=== PATIENT | female | born 1990 | race Caucasian/White ===

== ENCOUNTER 2016-11-04 19:37 | Emergency (ER) | payer OTHER ==
[~2016-11-04] VITALS: Ht 162.6 cm; Wt 81.0 kg
[~2016-11-04 19:37] MED LIST: PHEN30CA2 PO; VIT D3
[2016-11-04 19:51] VITALS: Ht 162.6 cm; Wt 81.0 kg
[2016-11-04] MEDS ORDERED: IBUPROFEN 200 MG TAB PO ONE (20:30)
--- NOTE | 2016-11-04 20:42 | ERD ---
ER Documentation Chief Complaint Date/Time DATE: 11/04/16 TIME: 20:30 Chief Complaint twisted right ankle today at [employer] HPI This 26-year-old female presents to the emergency department today for right ankle injury. 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 Patient reports pain is sharp and achy, 4 out of 10 on pain scale, pain is on the top of her right foot and lateral ligament of right ankle. Patient denies difficulty ambulating, states she used ice has taken no [id number]-odifara medication for symptomatic relief. Patient denies numbness or tingling to her toes, or difficulty ambulating ROS All systems reviewed and are negative except as per history of present illness. Medications Home Meds Active Scripts Ibuprofen* (Motrin*) 400 Mg Tab, 400 MG PO Q6 for 10 Days, #20 TAB Prov:AUREACRISTINA SMITH 11/04/16 Reported Medications Phentermine Hcl (Phentermine Hcl) 30 Mg Capsule, 30 MG PO DAILY, CAP 11/24/15 [Vit D3] No Conflict Check, DAILY 11/24/15 Allergies Allergies: Coded Allergies: No Known Allergy (Unverified , 11/24/15) PMhx/Soc History of Surgery: Yes (C SECTION X3, CHOLECYSTECTOMY,LASER EYE SURGERY) Anesthesia Reaction: No Hx Neurological Disorder: No Hx Respiratory Disorders: No Hx Cardiac Disorders: No Hx Psychiatric Problems: No Hx Miscellaneous Medical Probl: No Hx Alcohol Use: No Hx Substance Use: No Hx Tobacco Use: Yes Smoking Status: Former smoker Physical Exam Vitals Vital Signs Date Time Temp Pulse Resp B/P Pulse Ox O2 Delivery O2 Flow Rate FiO2 11/04/16 19:51 98.5 91 20 139/79 98 Vitals stable, triage notes reviewed Physical Exam Const: No acute distress Head: Atraumatic Eyes: Normal Conjunctiva, PERRLA, EOMI ENT: Normal External Ears, Nose and Mouth, mucous membranes moist Neck: Resp: Chest rise and fall symmetrically, no respiratory distress Cardio: Abd: Back: Lower Extremity -right ankle/foot Skin: No laceration Compartments: Soft Motor: Full active range of motion hip/knee/ankle/foot Sensation: Intact to light touch all surfaces. Bones: Patient has tenderness at fourth and third tarsal of right foot, lateral ligament tenderness. Negative Kincaid test. Joints: No effusion or laxity Pulses/Perfusion: 2+ DP, Capillary refill < 2 seconds Neur: Awake and alert Psych: Normal Mood and Affect Results 24 hrs Current Medications Medications (Trade) Dose Ordered Sig/Melonie Route PRN Reason Start Time Stop Time Status Last Admin Dose Admin Ibuprofen (Motrin) 400 mg ONCE ONCE PO 11/04/16 20:30 11/04/16 20:31 DC 11/04/16 20:33 Procedures/MDM PROCEDURE: XR Right Ankle CLINICAL INDICATION: Pain TECHNIQUE: Standard 3 view radiographs were submitted. COMPARISON: None FINDINGS: Osseous structures: Well mineralized and intact with no fracture or destructive process identified. Joint spaces: Well maintained with no significant erosions or spurring evident. Soft tissues: Appear unremarkable. IMPRESSION: Unremarkable right ankle. Physician Reg Date Time Electronically viewed and signed by Physician Reg on 11/04/2016 20:54 PROCEDURE: XR Right Foot CLINICAL INDICATION: Injury TECHNIQUE: AP, oblique, and lateral radiographs were submitted. COMPARISON: None FINDINGS: Osseous structures: appear well mineralized and intact with no fracture or destructive process identified. Joint spaces: are well maintained, with no significant spurring, erosion or joint effusion evident. Soft tissues: appear unremarkable. IMPRESSION: Unremarkable right foot. Physician Reg Date Time This pleasant 26-year-old female presenting to emergency department today for evaluation of right ankle. 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 Patient did not fall, or lose consciousness, denies any other injury. Was able to complete class, pain is 4/10 on pain scale. Fracture , dislocation, subluxation is unlikely. Been unable to rule out fracture, tenderness at distal malleolus ankle and foot x-ray documenting no fracture or dislocation or subluxation. She will be placed in an Augusto wrap, instructed in rice therapy, rest, ice, compression, elevation, no Germaine for 7 days. Patient prescribed Motrin to use as needed for the next 10 days. Return to emergency department for worsening of pain, swelling of foot or ankle. Numbness or tingling of foot and toes. I feel the patient is stable for discharge at this time with outpatient management by primary care physician. I have discussed results, examination findings, the treatment plan with the patient and family present prior to discharge. Indications for emergent reevaluation, side effects of medication were also discussed. All questions were answered. Patient verbalizes understanding and agrees with plan of care. Departure Diagnosis: Primary Impression: Sprain and strain Condition: Good Patient Instructions: Sprain, Ankle, With X-Ray Additional Instructions: Thank you for for coming to [facility] for your care today. Please ask your nurse or provider if you have questions about your care today and do not leave until all your questions have been answered. Please use any medications given as directed and follow-up with your doctor (or the doctor you were referred to) in the next 2-3 days. If you do not have a primary care doctor you may follow up at the [facility] (listed below). You may also use motrin and tylenol as needed for fever and/or pain unless instructed otherwise by your provider or nurse. Indications for more urgent follow-up have been discussed, but you may return to the Emergency Department at ANY time for any worrisome or worsening symptoms. If you have abdominal pain, please know that no test or exam you received is perfect and you should follow up within 8 hours for continued pain. If you had any imaging studies today, such as an X-Ray or CT Scan, these studies will be reviewed later by a radiologist. You will be called if there are important findings that were not identified today, so make sure the contact information you provided at registration is correct. If you received any narcotic pain control medicine today, such as Vicodin, Morphine or Dilaudid, your coordination and judgment may be affected for a number of hours. Please do not drive or operate heavy machinery, and you may want someone to assist you at home. If you were given a prescription for narcotic medication, be aware that it is very addictive- use sparingly and only if necessary. CRISTINA VILLAR November 04, 2016 20:41
--- NOTE | 2016-11-04 20:54 | RADRPT ---
PROCEDURE: XR Right Ankle CLINICAL INDICATION: Pain TECHNIQUE: Standard 3 view radiographs were submitted. COMPARISON: None FINDINGS: Osseous structures: Well mineralized and intact with no fracture or destructive process identified. Joint spaces: Well maintained with no significant erosions or spurring evident. Soft tissues: Appear unremarkable. IMPRESSION: Unremarkable right ankle. Physician Reg Date Time Electronically viewed and signed by Tyra Nash Physician on 11/04/2016 20:54 RH/
[2016-11-04] MEDS ORDERED: IBUP400T22 PO (21:17)
--- NOTE | 2016-11-04 21:32 | RADRPT ---
PROCEDURE: XR Right Foot CLINICAL INDICATION: Injury TECHNIQUE: AP, oblique, and lateral radiographs were submitted. COMPARISON: None FINDINGS: Osseous structures: appear well mineralized and intact with no fracture or destructive process iden tified. Joint spaces: are well maintained, with no significant spurring, erosion or joint effusion evident. Soft tissues: appear unremarkable. IMPRESSION: Unremarkable right foot. Physician Reg Date Time Electronically viewed and signed by Physician Reg on 11/04/2016 21:32 /
== END 2016-11-04 21:34 | disposition home or self-care (01) ==
LOC: FTE 19:37
DX: S93.601A Unspecified sprain of right foot, initial encounter (principal); X50.9XXA Other and unspecified overexertion or strenuous movements or postures, initial encounter; Y92.89 Other specified places as the place of occurrence of the external cause; Z87.891 Personal history of nicotine dependence
CPT/HCPCS: 73610; 73630; Z7610